=== PATIENT | male | born 1985 | race Caucasian/White ===

== ENCOUNTER → 2017-11-13 | Day surgery (SDC) | payer BC ==
[~2017-11-13] MED LIST: HYDROmorphone 2 MG/ML VIAL IV; IV RINGERS,LACTATED 1000ML 1,000 ML IV; LIDOCAINE 1% PF 2 ML VIAL. ID; LIDOCAINE 2% 100 MG/5 ML SYRINGE.; MIDAZOLAM HCL/PF 2 MG/2 ML VIAL. IV; MORPHINE SULFATE 2 MG/ML DISP.SYRIN. IV; ONDANSETRON PF 4 MG/2 ML VIAL. IV; PROCHLORPERAZINE 10 MG/2 ML VIAL. IV; PROPOFOL 20 ML IV; fentaNYL PF VIAL 100 MCG/2 ML VIAL IV
[2017-11-13 08:46] LABS: POC GLUCOSE 143 mg/dL (70-99)
[2017-11-13] MEDS: IV RINGERS,LACTATED 1000ML 1,000 ML IV (08:56)
== END | disposition home or self-care (01) ==
LOC: SURG 08:26
DX: K29.50 Unspecified chronic gastritis without bleeding (principal); K44.9 Diaphragmatic hernia without obstruction or gangrene; E66.01 Morbid (severe) obesity due to excess calories; K21.9 Gastro-esophageal reflux disease without esophagitis; E11.9 Type 2 diabetes mellitus without complications; F41.9 Anxiety disorder, unspecified; F32.9 Major depressive disorder, single episode, unspecified; Z87.891 Personal history of nicotine dependence; Z87.39 Personal history of other diseases of the musculoskeletal system and connective tissue
CPT/HCPCS: 43235; 82962; J2704

== ENCOUNTER → 2017-11-18 | Outpatient (CLI) | payer BC ==
[2017-11-18] MEDS: SINCALIDE IV (11:15)
[2017-11-18] MEDS: NORMAL SALINE IV (11:15)
== END | disposition home or self-care (01) ==
LOC: US 08:46
DX: N28.1 Cyst of kidney, acquired (principal); K76.0 Fatty (change of) liver, not elsewhere classified; R11.2 Nausea with vomiting, unspecified; R16.0 Hepatomegaly, not elsewhere classified
CPT/HCPCS: 76705; 78226; 96374; 96375; A9537; J2805

== ENCOUNTER 2020-05-30 15:01 | Emergency (ER) | payer OTHER, BC ==
[~2020-05-30] VITALS: Ht 167.6 cm; Wt 125.0 kg
[~2020-05-30 15:01] MED LIST changes: +ACET500T33; +ALPR0.25 PO; +ASPI-424; +CLIN300C8; +CYCL10TA2 PO; +FENO145T3 PO; +GABA300C18 PO; -HYDROmorphone 2 MG/ML VIAL IV; +IBUP-1060; +IBUP100T4 PO; -IV RINGERS,LACTATED 1000ML 1,000 ML IV; -LIDOCAINE 1% PF 2 ML VIAL. ID; -LIDOCAINE 2% 100 MG/5 ML SYRINGE.; +METF500T16 PO; -MIDAZOLAM HCL/PF 2 MG/2 ML VIAL. IV; -MORPHINE SULFATE 2 MG/ML DISP.SYRIN. IV; -ONDANSETRON PF 4 MG/2 ML VIAL. IV; +OXYC10TA PO; +OXYC1TAB20 PO; -PROCHLORPERAZINE 10 MG/2 ML VIAL. IV; -PROPOFOL 20 ML IV; -fentaNYL PF VIAL 100 MCG/2 ML VIAL IV
[2020-05-30] MEDS: HYDROmorphone 2 MG/ML VIAL IM ONE (15:21)
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
[2020-05-30] MEDS ORDERED: LIDOCAINE (700MG/PATCH) PATCH. TD SCH (16:15)
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
[2020-05-30 16:38] VITALS: BP 159/91
[2020-05-30] MEDS ORDERED: LIDO1ADH63 TP (16:39)
[2020-05-30] MEDS: IBUPROFEN 200 MG TABLET. PO ONE (16:42)
[2020-05-30] MEDS: CYCLOBENZAPRINE 10 MG TABLET. PO ONE (16:42)
[2020-05-30] MEDS: HYDROcodone/APAP 5/325MG 1 TAB TABLET PO ONE (16:43)
[2020-05-30] MEDS: LIDOCAINE (700MG/PATCH) PATCH. TD ONE (16:48)
== END 2020-05-30 16:48 | disposition home or self-care (01) ==
LOC: ER 15:01
DX: G89.11 Acute pain due to trauma (principal); M54.5 Low back pain; V89.2XXA Person injured in unspecified motor-vehicle accident, traffic, initial encounter; Y93.89 Activity, other specified; Y92.413 State road as the place of occurrence of the external cause; Y99.8 Other external cause status
CPT/HCPCS: 70450; 71045; 72125; 72128; 72131; 72170; 96372; 99285; J1170